=== PATIENT | male | born 1980 | race Caucasian/White ===

== ENCOUNTER 2018-10-05 18:56 | Emergency (ER) | payer SELFPAY ==
[~2018-10-05] VITALS: Ht 170.2 cm; Wt 83.9 kg
[2018-10-05] MEDS ORDERED: cloNIDine 0.2 MG (CATAPRES) TAB PO ONE (19:15)
[2018-10-05] MEDS ORDERED: cloNIDine 0.1 MG (CATAPRES) TAB ONE (19:26)
--- NOTE | 2018-10-05 19:29 | ED Psychosocial ---
General Chief Complaint: Psych/Social Disorder Stated Complaint: MED SCREENING Nursing Triage Note: PT. BROUGHT IN BY THE POLICE FOR A MENTAL HEALTH SCREENING. HE REPORTED THAT WAS BROUGHT HIM IN WAS HE HAD SENT A PICTURE OF A ROPE AROUND HIS NECK TO HIS MOTHER, STATING HE WAS JUST TRYING TO GET SOME ATTENTION. HE REPORTED HE DOES NOT HAVE A PLAN TO COMMIT SUICIDE BUT HE REPORTED HE HAS A SMALL CHILD WITH THE WOMAN HE LIVES WITH FOUND HER PHONE AND READ MESSAGES BETWEEN HER AND SOMEONE ELSE THAT UP SET HIM. Source: patient, police History of Present Illness Date Seen by Provider: Oct 05, 2018 Time Seen by Provider: 19:08 Initial Comments 37-year-old male presenting with complaints of suicidal ideation. He states he has had previous suicide attempts in the past. Modest recent psychiatric admission was approximately 1-1/2-2 years ago the [facility] in [place]. He states that he's been under stress and that he had read messages on his significant other's phone where she was talking with another man about getting together and cheating on him. They do live together and have a child together. They have been together for almost 7 years. The child is almost 3 years old. He states that today after receiving this messages that in an attempt to get attention and he has sent picture to his mother of a rope around his neck. After doing that his mother called the police who has been come to check on him and brought him to the emergency department. He states that he currently does not have a specifically indicated himself. He has not taken any alcohol or drugs today. He does have a medical history of hypertension but states that he can't afford to see the doctor or have health insurance and take medication. He denies having any headache or chest pain or change in his vision. Allergies and Home Medications Allergies Coded Allergies: No Known Drug Allergies (Unverified , 10/05/18) Patient Home Medication List Home Medication List Reviewed: Yes Review of Systems Constitutional: no symptoms reported EENTM: no symptoms reported; No epistaxis Respiratory: No dyspnea on exertion, No short of breath Cardiovascular: No chest pain, No palpitations Gastrointestinal: no symptoms reported Genitourinary: no symptoms reported Musculoskeletal: no symptoms reported Skin: no symptoms reported Psychiatric/Neurological: Depressed (upset about his girlfriend and mother of his child cheating on him) Past Bifctrc-Ewmhas-Sxgikm Hx Past Med/Social Hx: Reviewed Nursing Past Med/Soc Hx Patient Social History Recent Foreign Travel: No Contact w/Someone Who Travel: No Recent Infectious Disease Expo: No Past Medical History Appendectomy Respiratory: No Hypertension Neurological: No Genitourinary: No Gastrointestinal: No Arthritis Endocrine: No HEENT: No Cancer: No Suicide Attempts, Depression Physical Exam Vital Signs - First Documented 10/05/18 19:05 Temp 99.1 Pulse 110 Resp 20 B/P (MAP) 173/120 (137) Pulse Ox 98 O2 Delivery Room Air Capillary Refill : Less Than 3 Seconds Height, Weight, BMI Height: 5'7.00" Weight: 185lbs. oz. 83.994534ls; BMI Method:Stated General Appearance: WD/WN, no apparent distress HEENT: PERRL/EOMI, normal ENT inspection, pharynx normal Neck: non-tender, full range of motion, supple, normal inspection Respiratory: chest non-tender, lungs clear, normal breath sounds, no respiratory distress, no accessory muscle use Cardiovascular: normal peripheral pulses, regular rate, rhythm, no murmur Gastrointestinal: normal bowel sounds, non tender, soft, no organomegaly, no pulsatile mass Extremities: normal range of motion, non-tender, normal inspection, no pedal edema, no calf tenderness Neurologic/Psychiatric: financial services specialist II-XII nml as tested, no motor/sensory deficits, alert, oriented x 3, depressed affect Appearance/Memory: appropriate appearance Behavior/Eye Contact: cooperative, normal speech Thoughts/Hallucinations: normal thought pattern Skin: normal color, warm/dry Progress/Results/Core Measures Results/Orders Lab Results Laboratory Tests Test 10/05/18 19:10 10/05/18 19:15 Range/Units Urine Color YELLOW Urine Clarity CLEAR Urine pH 7.5 5-9 Urine Specific [place] 1.020 1.016-1.022 Urine Protein 1+ H NEGATIVE Urine Glucose (UA) NEGATIVE NEGATIVE Urine Ketones NEGATIVE NEGATIVE Urine Nitrite NEGATIVE NEGATIVE Urine Bilirubin NEGATIVE NEGATIVE Urine Urobilinogen 0.2 NORMAL MG/DL Urine Leukocyte Esterase NEGATIVE NEGATIVE Urine RBC (Auto) NEGATIVE NEGATIVE Urine RBC NONE /HPF Urine WBC 2-5 /HPF Urine Squamous Epithelial Cells RARE /HPF Urine Crystals NONE /LPF Urine Bacteria NEGATIVE /HPF Urine Casts PRESENT /LPF Urine Hyaline Casts 2-5 H /LPF Urine Mucus MODERATE H /LPF Urine Culture Indicated NO Urine Opiates Screen NEGATIVE NEGATIVE Urine Oxycodone Screen NEGATIVE NEGATIVE Urine Methadone Screen NEGATIVE NEGATIVE Urine Propoxyphene Screen NEGATIVE NEGATIVE Urine Barbiturates Screen NEGATIVE NEGATIVE Ur Tricyclic Antidepressants Screen NEGATIVE NEGATIVE Urine Phencyclidine Screen NEGATIVE NEGATIVE Urine Amphetamines Screen NEGATIVE NEGATIVE Urine Methamphetamines Screen NEGATIVE NEGATIVE Urine Benzodiazepines Screen NEGATIVE NEGATIVE Urine Cocaine Screen NEGATIVE NEGATIVE Urine Cannabinoids Screen NEGATIVE NEGATIVE White Blood Count 11.2 H 4.3-11.0 10^3/uL Red Blood Count 5.60 4.35-5.85 10^6/uL Hemoglobin 17.3 13.3-17.7 G/DL Hematocrit 49 40-54 % Mean Corpuscular Volume 88 80-99 FL Mean Corpuscular Hemoglobin 31 25-34 PG Mean Corpuscular Hemoglobin Concent 35 32-36 G/DL Red Cell Distribution Width 12.9 10.0-14.5 % Platelet Count 348 130-400 10^3/uL Mean Platelet Volume 8.8 7.4-10.4 FL Neutrophils (%) (Auto) 71 42-75 % Lymphocytes (%) (Auto) 23 12-44 % Monocytes (%) (Auto) 5 0-12 % Eosinophils (%) (Auto) 0 0-10 % Basophils (%) (Auto) 1 0-10 % Neutrophils # (Auto) 7.9 H 1.8-7.8 X 10^3 Lymphocytes # (Auto) 2.5 1.0-4.0 X 10^3 Monocytes # (Auto) 0.6 0.0-1.0 X 10^3 Eosinophils # (Auto) 0.0 0.0-0.3 10^3/uL Basophils # (Auto) 0.1 0.0-0.1 10^3/uL Sodium Level 142 135-145 MMOL/L Potassium Level 4.2 3.6-5.0 MMOL/L Chloride Level 103 98-107 MMOL/L Carbon Dioxide Level 29 21-32 MMOL/L Anion Gap 10 5-14 MMOL/L Blood Urea Nitrogen 12 7-18 MG/DL Creatinine 1.14 0.60-1.30 MG/DL Estimat Glomerular Filtration Rate > 60 BUN/Creatinine Ratio 11 Glucose Level 109 H 70-105 MG/DL Calcium Level 9.9 8.5-10.1 MG/DL Corrected Calcium 8.5-10.1 MG/DL Total Bilirubin 0.3 0.1-1.0 MG/DL Aspartate Amino Transf (AST/SGOT) 27 5-34 U/L Alanine Aminotransferase (ALT/SGPT) 65 H 0-55 U/L Alkaline Phosphatase 92 40-136 U/L Total Protein 8.5 H 6.4-8.2 GM/DL Albumin 5.1 H 3.2-4.5 GM/DL Salicylates Level < 3.0 L 5.0-20.0 MG/DL Acetaminophen Level < 10 L 10-30 UG/ML Serum Alcohol < 10 <10 MG/DL My Orders Orders - LÓPEZ ARRINGTON MD Ua Culture If Indicated (10/05/18 19:14) Cbc With Automated Diff (10/05/18 19:14) Comprehensive Metabolic Panel (10/05/18 19:14) Alcohol (10/05/18 19:14) Drug Screen Stat (Urine) (10/05/18 19:14) Acetaminophen (10/05/18 19:14) Salicylate (10/05/18 19:14) Ekg Tracing (10/05/18 19:14) Bh Status Checks/Observation Q15M (10/05/18 19:14) Clonidine Tablet (Catapres Tablet) (10/05/18 19:15) Clonidine Tablet (Catapres Tablet) (10/05/18 19:26) Medications Given in ED Current Medications Medications Dose Ordered Sig/Bob Route Start Time Stop Time Status Last Admin Dose Admin Clonidine HCl 0.2 mg ONCE ONCE PO 10/05/18 19:15 10/05/18 19:16 DC 10/05/18 19:31 0.2 MG Vital Signs/I&O 10/05/18 10/05/18 10/05/18 19:05 19:56 21:40 Temp 99.1 99.1 99.1 Pulse 110 110 110 Resp 20 20 20 B/P (MAP) 173/120 (137) 160/99 (119) 160/99 (119) Pulse Ox 98 98 98 O2 Delivery Room Air Room Air Blood Pressure Mean: 137 Progress Progress Note #1: Progress Note obtain labs and ECG to medically screen him for mental health so they can do an evaluation. Progress Note #2: Progress Note Patient was medically cleared and stable for evaluation by mental health. [facility] screening done over telehealth and a safety plan was reached for him. He was to follow the safety plan and was discharged based off of that. [facility] faxed a safety contract and plan to have the patient sign and follow. Initial ECG Impression Date: Oct 05, 2018 Initial ECG Impression Time: 19:33 Initial ECG Rate: 98 Initial ECG Rhythm: Normal Sinus Initial ECG Intervals: Normal Initial ECG Intervals [place] interval 188 ms. QT interval of 334 ms and QTc interval of [address] elevation. Initial ECG Impression: Normal Initial ECG Comparisson: No Previous ECG Available Departure Impression Primary Impression: Adjustment disorder with depressed mood Additional Impressions: Suicidal thoughts Essential hypertension Disposition: 01 HOME, SELF-CARE Condition: Stable Departure-Patient Inst. Decision time for Depature: 21:03 Referrals: NO,LOCAL PHYSICIAN (PCP/Family) Primary Care Physician Patient Instructions: Adjustment Disorder, Depression, Adult (DC), Suicide Prevention Add. Discharge Instructions: Follow the safety contract and plan as set up by [facility] from when you were speaking with them tonight during your screening. If you feel unsafe or like you need more help call their crisis line or 911 to get more assistance. All discharge instructions reviewed with patient and/or family. Voiced understanding. LÓPEZ ARRINGTON MD Oct 05, 2018 19:29
[2018-10-05 19:39] LABS: HEMATOCRIT 49 % (40-54); HEMOGLOBIN 17.3 G/DL (13.3-17.7); MEAN CORPUSCULAR HEMOGLOBIN 31 PG (25-34); MEAN CORPUSCULAR VOLUME 88 FL (80-99); WHITE BLOOD COUNT 11.2 10^3/uL (4.3-11.0)
[2018-10-05 19:40] LABS: BASOPHILS # (AUTO) 0.1 10^3/uL (0.0-0.1); BASOPHILS % (AUTO) 1 % (0-10); EOSINOPHILS % (AUTO) 0 % (0-10); LYMPHOCYTES # (AUTO) 2.5 X 10^3 (1.0-4.0); LYMPHOCYTES % (AUTO) 23 % (12-44); MEAN CORPUSCULAR HGB CONC 35 G/DL (32-36); MEAN PLATELET VOLUME 8.8 FL (7.4-10.4); MONOCYTES # (AUTO) 0.6 X 10^3 (0.0-1.0); MONOCYTES % (AUTO) 5 % (0-12); NEUTROPHILS # (AUTO) 7.9 X 10^3 (1.8-7.8); NEUTROPHILS % (AUTO) 71 % (42-75); PLATELET COUNT 348 10^3/uL (130-400); RED CELL DISTRIBUTION WIDTH 12.9 % (10.0-14.5)
[2018-10-05 19:47] LABS: BUN/CREATININE RATIO 11; CARBON DIOXIDE 29 MMOL/L (21-32); CHLORIDE 103 MMOL/L (98-107); CREATININE SERUM 1.14 MG/DL (0.60-1.30); GFR ESTIMATED > 60; POTASSIUM 4.2 MMOL/L (3.6-5.0); SODIUM 142 MMOL/L (135-145)
[2018-10-05 19:48] LABS: ALANINE AMINOTRANSFERASE 65 U/L (0-55); ALBUMIN 5.1 GM/DL (3.2-4.5); ALKALINE PHOSPHATASE 92 U/L (40-136); BILIRUBIN,TOTAL 0.3 MG/DL (0.1-1.0); CALCIUM 9.9 MG/DL (8.5-10.1); GLUCOSE 109 MG/DL (70-105); SALICYLATE < 3.0 MG/DL (5.0-20.0); TOTAL PROTEIN 8.5 GM/DL (6.4-8.2)
[2018-10-05 19:49] LABS: ACETAMINOPHEN < 10 UG/ML (10-30)
[2018-10-05 19:50] LABS: BILIRUBIN,URINE NEGATIVE (NEGATIVE); CLARITY,URINE CLEAR; COLOR,URINE YELLOW; GLUCOSE, URINE (UA) NEGATIVE (NEGATIVE); KETONES,URINE NEGATIVE (NEGATIVE); LEUKOCYTE ESTERASE ,URINE NEGATIVE (NEGATIVE); NITRITE,URINE NEGATIVE (NEGATIVE); PH,URINE 7.5 (5-9); PROTEIN,URINE 1+ (NEGATIVE)
[2018-10-05 19:51] LABS: BACTERIA,URINE NEGATIVE /HPF; SQUAMOUS EPITHELIAL CELL,UR RARE /HPF
[2018-10-05 19:53] LABS: UROBILINOGEN,URINE 0.2 MG/DL (NORMAL)
[2018-10-05 19:54] LABS: AMPHETAMINE SCREEN, URINE NEGATIVE (NEGATIVE); BARBITURATE SCREEN URINE NEGATIVE (NEGATIVE); BENZODIAZEPINES SCREEN URINE NEGATIVE (NEGATIVE); CANNABINOID SCREEN, URINE NEGATIVE (NEGATIVE); COCAINE SCREEN URINE NEGATIVE (NEGATIVE); METHADONE STAT NEGATIVE (NEGATIVE); METHAMPHETAMINE SCREEN URINE S NEGATIVE (NEGATIVE); OPIATE SCREEN URINE NEGATIVE (NEGATIVE); OXYCODONE STAT NEGATIVE (NEGATIVE); PROPOXYPHENE STAT NEGATIVE (NEGATIVE); TRICYCLIC ANTIDEPRESSANTS SCRE NEGATIVE (NEGATIVE)
[2018-10-05 19:56] VITALS: BP 160/99
--- NOTE | 2018-10-05 20:03 | NUR ---
CONTACTED MENTAL HEALTH. JODEE
[2018-10-05 21:40] VITALS: BP 160/99
== END 2018-10-05 21:40 | disposition home or self-care (01) ==
LOC: ER FS 18:58
DX: F43.21 Adjustment disorder with depressed mood (principal); R45.851 Suicidal ideations; I10 Essential (primary) hypertension; F32.9 Major depressive disorder, single episode, unspecified; Z90.49 Acquired absence of other specified parts of digestive tract; Z91.5 Personal history of self-harm
CPT/HCPCS: 36415; 80053; 80306; 80320; 80329; 81000; 85025; 93005